=== PATIENT | male | born 1985 | race American Indian/Alaskan Native ===

== ENCOUNTER 2018-08-15 09:48 | Emergency (ER) | payer OTHER ==
[2018-08-15 10:05] VITALS: BP 162/109
[2018-08-15] MEDS ORDERED: MOTRIN PO ONE (11:24)
[2018-08-15] MEDS ORDERED: ROBAXIN PO ONE (11:26)
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
== END 2018-08-15 12:59 | disposition home or self-care (01) ==
LOC: ED 09:48
DX: S16.1XXA Strain of muscle, fascia and tendon at neck level, initial encounter (principal); R07.89 Other chest pain; I10 Essential (primary) hypertension; J45.909 Unspecified asthma, uncomplicated; Z88.0 Allergy status to penicillin; V49.49XA Driver injured in collision with other motor vehicles in traffic accident, initial encounter; Y93.89 Activity, other specified; Y92.488 Other paved roadways as the place of occurrence of the external cause; Y99.8 Other external cause status
CPT/HCPCS: 71046; 99283

== ENCOUNTER 2020-08-18 09:21 | Emergency (ER) | payer OTHER ==
[2020-08-18 09:27] VITALS: BP 150/102
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
== END 2020-08-18 11:47 | disposition home or self-care (01) ==
LOC: ED 09:21
DX: M79.10 Myalgia, unspecified site (principal); I10 Essential (primary) hypertension; J45.909 Unspecified asthma, uncomplicated; Z79.899 Other long term (current) drug therapy; Z88.0 Allergy status to penicillin
CPT/HCPCS: 99282

== ENCOUNTER 2020-11-22 16:06 | Emergency (ER) | payer OTHER ==
[2020-11-22 16:21] VITALS: BP 174/103
== END 2020-11-22 18:00 | disposition left against medical advice (07) ==
LOC: ED 16:06
DX: R07.89 Other chest pain (principal); R51.9 Headache, unspecified; R07.81 Pleurodynia; Z53.21 Procedure and treatment not carried out due to patient leaving prior to being seen by health care provider